=== PATIENT | female | born 1975 | race Caucasian/White ===

== ENCOUNTER 2022-04-13 08:50 | Emergency (ER) | payer OTHER ==
[~2022-04-13] VITALS: Ht 160 cm; Wt 59.0 kg
--- NOTE | 2022-04-13 09:10 | NUR ---
Pt. walked to ER c/o of lower back 7/10 pain and sciatica pain. Pt. states having a bulging disk. Pts. pain started last night and is exarcebated upon movement and when performing ADL's. evaluated patient at bedside.
[2022-04-13] MEDS ORDERED: predniSONE 20 MG TABLET ONE (09:12)
[2022-04-13] MEDS ORDERED: NAPR-1164 PO (09:14)
[2022-04-13] MEDS ORDERED: CYCL10TA9 PO (09:14)
[2022-04-13] MEDS ORDERED: PRED20TA PO (09:14)
[2022-04-13] MEDS ORDERED: predniSONE 20 MG TABLET PO ONE (09:15)
--- NOTE | 2022-04-13 09:24 | NUR ---
Patient discharged to home in stable condition. Written and verbal after care instructions given. Patient verbalizes understanding of instructions. Stressed follow up or return to ER for worsening s/s.
[2022-04-13 09:27] VITALS: BP 84/66
== END 2022-04-13 09:29 | disposition home or self-care (01) ==
LOC: ER 08:50
DX: M54.42 Lumbago with sciatica, left side (principal)
CPT/HCPCS: 99283; J7512; A4663